=== PATIENT | female | born 1990 | race Hispanic/Latino ===

== ENCOUNTER 2018-06-05 10:14 | Emergency (ER) | payer BC ==
[2018-06-05] MEDS ORDERED: DiphenhydrAMINE 50 mg/ml Inj ONE (10:21)
[2018-06-05 10:25] VITALS: BMI 27.3
[2018-06-05] MEDS ORDERED: Sodium Chloride 0.9% 1,000 ML IV ONE (10:30)
[2018-06-05] MEDS ORDERED: DiphenhydrAMINE 50 mg/ml Inj IVP STA ×2 (10:30→12:55)
--- NOTE | 2018-06-05 10:32 | C.PDOC ---
History Of Present Illness 28 y/o female presents to the ER complaining of diffuse itchy rash which began in the morning. Patient states that she has associated sensation of throat itching and swelling. Patient reports that the symptoms have become worse over the past 1-2 hours [employer]. She states that she has history of 1 allergic reaction when she was in high school. She notes that she does not use EpiPen. Denies having known allergens,SOB, cough, fever, and chills. Time Seen by Provider: 06/05/18 10:21 Chief Complaint (Nursing): Allergic Reaction History Per: Patient History/Exam Limitations: no limitations Onset/Duration Of Symptoms: Hrs Current Symptoms Are (Timing): Still Present Severity: Moderate Past Medical History Reviewed: Historical Data, Nursing Documentation, Vital Signs - Medical History PMH: No Chronic Diseases Surgical History: No Surg Hx Family History: States: No Known Family Hx Review Of Systems Except As Marked, All Systems Reviewed And Found Negative. Constitutional: Negative for: Fever, Chills ENT: Positive for: Other (throat itching and swelling) Cardiovascular: Negative for: Chest Pain Respiratory: Negative for: Cough, Shortness of Breath Skin: Positive for: Rash Physical Exam - Physical Exam Appears: Non-toxic, No Acute Distress Skin: Warm, Dry, Rash (diffuse urticaria to chest and torso) Head: Atraumatic, Normacephalic Eye(s): bilateral: Normal Inspection Nose: Normal Oral Mucosa: Moist Tongue: Normal Appearing, No Swelling Lips: Normal Appearing, No Swelling Throat: No Erythema, No Exudate, No Drooling, Other (uvula midline) Neck: Supple Chest: Symmetrical Cardiovascular: Rhythm Regular (with tachycardia) Respiratory: Normal Breath Sounds, No Rales, No Rhonchi, No Stridor, No Wheezing Gastrointestinal/Abdominal: Normal Exam, Soft, No Tenderness, No Guarding, No Rebound Neurological/Psych: Oriented x3, Normal Speech ED Course And Treatment Progress Note: Patient treated with Benadryl IV, Pepcid IV, Solu-Medrol IV, and IV Fluids. Disposition Counseled Patient/Family Regarding: Diagnosis, Need For Followup, Rx Given - Disposition Referrals: [facility] [Outside] Disposition: HOME/ ROUTINE Disposition Time: 13:55 Condition: STABLE Additional Instructions: FOLLOW UP WITH YOUR DOCTOR IN 1-2 DAYS USE MEDICATIONS DIRECTED RETURN TO ER IF SYMPTOMS WORSEN Prescriptions: DiphenhydrAMINE [Benadryl] 25 mg PO Q6 PRN #20 cap PRN Reason: Itching / Pruritus Epinephrine [Epipen] 0.3 mg IJ ONCE PRN #1 auto.injct PRN Reason: Anaphylaxis predniSONE [predniSONE Tab] 40 mg PO DAILY #8 tab Instructions: Christophees (DC) Forms: [employer] (Japanese) Print Language: MALAY - Clinical Impression Clinical Impression: Allergic urticaria - Scribe Statement The provider has reviewed the documentation as recorded by the Agatha Salinas Provider Attestation: All medical record entries made by the Agatha were at my direction and personally dictated by me. I have reviewed the chart and agree that the record accurately reflects my personal performance of the history, physical exam, m edical decision making, and the department course for this patient. I have also personally directed, reviewed, and agree with the discharge instructions and disposition.
[2018-06-05 12:48] VITALS: RESP 18; TEMP 97.9
[2018-06-05 14:10] VITALS: BP 113/67; PULSE 100; O2SAT 98
== END 2018-06-05 14:10 | disposition home or self-care (01) ==
LOC: C.ER 10:14
DX: L50.0 Allergic urticaria (principal)
CPT/HCPCS: 96361; 96374; 96375; 99285; J1200; J2930; J7030